=== PATIENT | female | born 1975 | race Caucasian/White ===

== ENCOUNTER 2022-07-05 00:09 | Observation (INO) ==
[2022-07-05] MEDS ORDERED: Iopamidol - 370 500 ML MLS IVP ONE (01:22)
[2022-07-05 02:20] LABS: Basophils % 0.3 %; Eosinophils % 0.2 %; Hematocrit 37.2 % (35.3-44.9); Hemoglobin 12.5 g/dL (11.5-15.4); Immature Granulocytes % 0.5 % (0-4); Lymphocytes # 0.4 K/mcL (0.6-4.6); Lymphocytes % 4.8 %; Mean Corpuscular HGB Conc 33.6 g/dL (31.6-35.5); Mean Corpuscular Hemoglobin 29.3 pg (28.0-33.3); Mean Corpuscular Volume 87.1 fL (83.0-100.0); Mean Platelet Volume 9.5 fL (9.4-12.4); Neutrophils # 7.1 K/mcL (1.6-8.9); Platelet Count 343 K/mcL (140-400); Red Blood Count 4.27 M/mcL (3.82-4.97); Red Cell Distribution Width 13.2 % (11.5-14.5); Segmented Neutrophils % 82.2 %; White Blood Count 8.6 K/mcL (4.3-11.1)
[2022-07-05 02:24] LABS: VBG HCO3 29 mEq/L (21-27); VBG PCO2 48 mmHg (41-51); VBG PO2 91 mmHg (25-50)
[2022-07-05 03:01] LABS: Acetaminophen < 10 mcg/mL (10-20); Alanine Aminotransferase 10 Units/L (7-52); Albumin 4.6 g/dL (3.5-5.7); Albumin/Globulin Ratio 1.5 (1.1-2.2); Alkaline Phosphatase 68 Units/L (34-104); Amylase 24 Units/L (29-103); Aspartate Amino Transferase 16 Units/L (13-39); BUN/Creatinine Ratio 28 (6-26); Bilirubin,Total 0.4 mg/dL (0.3-1.0); Blood Urea Nitrogen 19 mg/dL (6-20); C-Reactive Protein 13 mg/L (Less than 10); Calcium 9.8 mg/dL (8.6-10.3); Carbon Dioxide 26 mEq/L (23-29); Chloride 98 mEq/L (98-107); Creatine Kinase 114 Units/L (30-223); Glucose 110 mg/dL (70-105); Lipase 55 Units/L (11-82); Magnesium 1.9 mg/dL (1.6-2.6); Osmolality,Calculated 281 (280-300); Salicylate < 2.5 mg/dL (15.0-30.0); Sodium 134 mEq/L (136-145); Thyroid Stimulating Hormone 0.866 mcIU/mL (0.340-5.600); Total Protein 7.6 g/dL (6.4-8.9); Troponin I < 0.03 ng/mL (< 0.04)
[2022-07-05 03:03] LABS: Influenza A PCR Negative (Negative); Influenza B PCR Negative (Negative); Resp. Syncytial Virus PCR Negative (Negative)
[2022-07-05 03:15] LABS: SARS-CoV-2 by PCR (In House) Positive (Negative)
[2022-07-05 04:55] LABS: Bilirubin,Urine Negative (Negative); Blood,Urine Negative (Negative); Clarity,Urine Clear (Clear); Color,Urine Colorless (Yellow); Glucose,Urine (UA) Normal (Normal); Ketones,Urine 150 mg/dL (Negative); Leukocyte Esterase,Urine Negative (Negative); Mucus,Urine Few per lpf (None-Few); Nitrite,Urine Negative (Negative); PH,Urine 6.5 pH Units (5.0-8.0); Protein,Urine 30 mg/dL (Neg-Trace); RBC,Urine 0-3 per hpf (0-3); Specific Gravity,Urine > 1.030 (1.010-1.025); Urobilinogen,Urine Normal (Normal); WBC,Urine 0-3 per hpf (0-3)
[2022-07-05] MEDS ORDERED: Ondansetron ODT 4 MG TAB.RAPDIS SL PRN (07:47)
[2022-07-05] MEDS ORDERED: Acetaminophen 325 MG TABLET PO PRN (07:47)
[2022-07-05] MEDS ORDERED: Naloxone 0.4 MG/ML INJ IVP PRN (07:47)
[2022-07-05] MEDS ORDERED: Melatonin 3 MG TABLET PO PRN (07:47)
[2022-07-05] MEDS: D5% in 0.9% NACL 1,000 ML IVC SCH (18:30)
[2022-07-05] MEDS: Dextroamphetamine/Amphetamine [Adderall 30 Mg Tablet] PO SCH (22:17)
[2022-07-06] MEDS: D5% in 0.9% NACL 1,000 ML IVC SCH ×3 (04:45→21:32)
[2022-07-06 05:19] LABS: Hematocrit 34.4 % (35.3-44.9); Hemoglobin 11.4 g/dL (11.5-15.4); Mean Corpuscular HGB Conc 33.1 g/dL (31.6-35.5); Mean Corpuscular Hemoglobin 29.2 pg (28.0-33.3); Mean Corpuscular Volume 88.2 fL (83.0-100.0); Mean Platelet Volume 9.7 fL (9.4-12.4); Platelet Count 275 K/mcL (140-400); White Blood Count 5.8 K/mcL (4.3-11.1)
[2022-07-06 05:45] LABS: BUN/Creatinine Ratio 18 (6-26); Blood Urea Nitrogen 10 mg/dL (6-20); Calcium 8.4 mg/dL (8.6-10.3); Carbon Dioxide 27 mEq/L (23-29); Chloride 102 mEq/L (98-107); Glucose 124 mg/dL (70-105); Magnesium 1.9 mg/dL (1.6-2.6); Osmolality,Calculated 284 (280-300); Potassium 2.9 mEq/L (3.5-5.1); Sodium 137 mEq/L (136-145)
[2022-07-06] MEDS ORDERED: Magnesium Sulfate 1 GM/102 ML PIGGYBACK IVPB ONE (07:26)
[2022-07-06] MEDS: Dextroamphetamine/Amphetamine [Adderall 30 Mg Tablet] PO SCH ×2 (07:40→21:32)
[2022-07-06] MEDS: *HR* Enoxaparin 40 MG/0.4 ML SYRINGE SQ SCH (08:02)
[2022-07-06 10:49] LABS: Amphetamine Screen,Urine Positive ng/mL (Cutoff=1000); Barbiturate Screen,Urine Negative ng/mL (Cutoff=200); Benzodiazepines Screen,Urine Negative ng/mL (Cutoff=200); Cannabinoid Screen,Urine Negative ng/mL (Cutoff = 50); Cocaine Screen,Urine Negative ng/mL (Cutoff= 300); Opiate Screen,Urine Negative ng/mL (Cutoff=300); Phencyclidine Screen,Urine Negative ng/mL (Cutoff=25)
[2022-07-06] MEDS: ALPRAZolam 1 MG TABLET PO PRN (21:32)
[2022-07-07 02:53] LABS: Hematocrit 34.5 % (35.3-44.9); Hemoglobin 11.3 g/dL (11.5-15.4); Mean Corpuscular HGB Conc 32.8 g/dL (31.6-35.5); Mean Corpuscular Volume 88.5 fL (83.0-100.0); Mean Platelet Volume 10.1 fL (9.4-12.4); Platelet Count 251 K/mcL (140-400); Red Cell Distribution Width 12.5 % (11.5-14.5); White Blood Count 4.5 K/mcL (4.3-11.1)
[2022-07-07 03:13] LABS: BUN/Creatinine Ratio 7 (6-26); Blood Urea Nitrogen 4 mg/dL (6-20); Calcium 8.1 mg/dL (8.6-10.3); Carbon Dioxide 29 mEq/L (23-29); Chloride 105 mEq/L (98-107); Glucose 106 mg/dL (70-105); Magnesium 1.8 mg/dL (1.6-2.6); Osmolality,Calculated 285 (280-300); Potassium 2.9 mEq/L (3.5-5.1); Sodium 139 mEq/L (136-145)
[2022-07-07] MEDS: *HR* Enoxaparin 40 MG/0.4 ML SYRINGE SQ SCH (10:14)
[2022-07-07] MEDS: Dextroamphetamine/Amphetamine [Adderall 30 Mg Tablet] PO SCH (10:48)
[2022-07-07] MEDS: D5% in 0.9% NACL 1,000 ML IVC SCH (10:49)
[2022-07-07] MEDS: ALPRAZolam 1 MG TABLET PO PRN (18:24)
[2022-07-07 18:40] VITALS: BP 147/82; PULSE 79; TEMP 98.6; O2SAT 99
== END 2022-07-07 18:55 | disposition home or self-care (01) ==
LOC: EMEROOARM 00:09 → 3BNU 00:09
PROVIDERS: ADMIT Internal Medicine; ATTEND Internal Medicine